=== PATIENT | female | born 2000 | race Caucasian/White ===

== ENCOUNTER 2019-05-04 22:24 | Emergency (ER) | payer BC ==
--- NOTE | 2019-05-05 02:44 | ED ---
Complex/Multi-Sys Presentation - HPI Summary HPI Summary: Patient is a 18 y/o F presenting to [facility] with complaints N/V, dizziness, and syncope. She states that around 1930 05/04/19, she became nauseous and started vomiting. She subsequently began to feel a dizziness that is characterized as light-headedness around 2100. Patient states that she had gone to the bathroom and experienced a syncopal episode. Patient reports having approximately eight episodes of emesis. Vomiting is reported to have alleviated her dizziness. She states that she has been having intermittent abdominal pain that she characterizes as a cramping sensation as well. CP is denied. She notes that her Sx are currently improved. Patient is on control and notes LNMP was 2 weeks ago. She reports no change of . FMHx of ovarian cyst noted. On triage, pain is denied. Home medications and allergies are reviewed. - History Of Current Complaint Chief Complaint: EDNauseaVomitDiarrh Time Seen by Provider: 05/05/19 02:30 Hx Obtained From: Patient Onset/Duration: Lasting Hours, Resolved - Sx are improving Timing: Hours Severity Currently: None - pain denied on triage Severity Initially: Moderate Location: Pain At: - abdomen Character: Throbbing - cramping abd pain Aggravating Factor(s): nothing Alleviating Factor(s): vomiting alleviated dizziness Associated Signs And Symptoms: Positive: Dizziness, Syncope, Nausea, Vomiting, Abdominal Pain. Negative: Chest Pain - Allergies/Home Medications Allergies/Adverse Reactions: Allergies Allergy/AdvReac Type Severity Reaction Status Date / Time No Known Allergies Allergy Verified 05/04/19 22:45 PMH/Surg Hx/FS Hx/Imm Hx Sensory History: Denies: Hx Legally Blind, Hx Deafness Opthamlomology History: Denies: Hx Legally Blind EENT History: Denies: Hx Deafness Infectious Disease History: No Infectious Disease History: Denies: Traveled Outside the [place] in Last 30 Days - Family History Known Family History: Positive: Other - ovarian cysts - Social History Alcohol Use: Occasionally Substance Use Type: Reports: None Smoking Status (MU): Never Smoked Tobacco Review of Systems Negative: Chest Pain Positive: Vomiting, Nausea Neurological: Other - pos - dizziness Positive: Syncope All Other Systems Reviewed And Are Negative: Yes Physical Exam - Summary Physical Exam Summary: Appearance: Well-appearing, Well-nourished, lying in bed comfortably Skin: Warm, dry, no obvious rash Eyes: sclera anicteric, no conjunctival pallor ENT: mucous membranes moist, pharynx appears normal Neck: Supple, nontender Respiratory: Clear to auscultation, no signs of respiratory distress Cardiovascular: Normal S1, S2. No murmurs. Normal distal pulses in tibial and radial bilaterally. Abdomen: Soft, nontender, normal active bowel sounds present Musculoskeletal: Normal, Strength/ROM Intact Neurological: A&Ox3, awake and alert, mentation is normal, speech is fluent and appropriate Psychiatric: affect is normal, does not appear anxious or depressed Triage Information Reviewed: Yes Vital Signs On Initial Exam: Initial Vitals Temp Pulse Resp BP Pulse Ox 99.9 F 16 160 121/70 95 05/04/19 22:45 05/04/19 22:45 05/04/19 22:45 05/04/19 22:45 05/04/19 22:45 Vital Signs Reviewed: Yes Procedures - Sedation Patient Received Moderate/Deep Sedation with Procedure: No Diagnostics - Vital Signs Vital Signs Temp Pulse Resp BP Pulse Ox 05/05/19 01:50 99.6 F 81 18 130/64 05/04/19 22:45 99.9 F 16 160 121/70 95 - Laboratory Lab Statement: Any lab studies that have been ordered have been reviewed, and results considered in the medical decision making process. - EKG 2250 Cardiac Rate: Other Rate - sinus arrhythmia with rate of 74 BPM Summary of EKG Findings: EKG showed sinus arrhythmia with rate of 74 BPM, no STEMI. This EKG was reviewed and interpreted by ED physician. Complex Multi-Symp Course/Dx Course Of Treatment: Patient is a 18 y/o F presenting to [facility] with complaints N /V, dizziness, and syncope. She states that around 1930 05/04/19, she became nauseous and started vomiting. She subsequently began to feel a dizziness that is characterized as light-headedness around 2099. Patient states that she had gone to the bathroom and experienced a syncopal episode. Patient reports having approximately eight episodes of emesis. Vomiting is reported to have alleviated her dizziness. She states that she has been having intermittent abdominal pain that she characterizes as a cramping sensation as well. CP is denied. She notes that her Sx are currently improved. Patient is on control and notes LNMP was 2 weeks ago. Physical exam is unremarkable. EKG showed sinus arrhythmia with rate of 74 BPM, no STEMI. Patient was given Zofran 8 mg SL and prescription for this medication. She was discharged to home. - Diagnoses Provider Diagnoses: Nausea and vomiting, Vasovagal syncope Discharge ED - Sign-Out/Discharge Documenting (check all that apply): Patient Departure - discharge - Discharge Plan Condition: Good Disposition: HOME Prescriptions: Ondansetron ODT TAB* [Zofran 4 MG Odt TAB*] 8 mg PO Q6H PRN #12 tab.odt PRN Reason: Nausea Patient Education Materials: Syncope (ED), Acute Nausea and Vomiting (ED) Forms: *School Release Referrals: [facility] [Outside] - If Needed No Primary Care Phys,[facility]OP[facility] [Primary Care Provider] - - Billing Disposition and Condition Condition: GOOD Disposition: Home - Attestation Statements Document Initiated by Anthony: Yes Documenting Scribe: DAENLLE MONTOYA Provider For Whom Darwinibdebbie is Documenting (Include Credential): HOSSEIN FISCHER MD Scribe Attestation: DANELLE Cordova, scribed for HOSSEIN FISCHER MD on 05/06/19 at 0544. Scribe Documentation Reviewed: Yes Provider Attestation: The documentation as recorded by the DANELLE muse accurately reflects the service I personally performed and the decisions made by HOSSEIN snow MD Status of Scribe Document: Viewed
[2019-05-05] MEDS ORDERED: Ondansetron ODT TAB* 4 MG SL ONE (03:29)
[2019-05-05 03:38] VITALS: BP 112/63
== END 2019-05-05 03:37 | disposition home or self-care (01) ==
LOC: ED 22:24
DX: R55 Syncope and collapse (principal); R42 Dizziness and giddiness; R11.2 Nausea with vomiting, unspecified; R10.9 Unspecified abdominal pain
CPT/HCPCS: 93005; 99283; A9270-GY